=== PATIENT | female | born 1980 | race Two or more races ===

== ENCOUNTER 2024-10-25 10:34 | Outpatient (CLI) | payer OTHER, SELFPAY ==
[2024-10-25 11:41] LABS: Anion Gap 6 mmol/L (4-12); Blood Urea Nitrogen 10 mg/dL (7-17); Calcium 8.7 mg/dL (8.4-10.2); Carbon Dioxide 26 mmol/L (22-30); Chloride 104 mmol/L (98-107); Estimated Glomerular Filt Rate > 60; Glucose 77 mg/dL (65-110); Potassium 4.3 mmol/L (3.4-5.0); Sodium 136 mmol/L (137-145)
== END 2024-10-25 10:35 | disposition home or self-care (01) ==
LOC: ANHSURGERY 10:40
PROVIDERS: Anesthesiology; PCP Family Medicine; Visit Provider Obstetrics & Gynecology
DX: Z51.81 Encounter for therapeutic drug level monitoring (principal); Z79.899 Other long term (current) drug therapy
CPT/HCPCS: 36415; 80048

== ENCOUNTER 2024-11-04 00:58 | Day surgery (SDC) | payer OTHER, SELFPAY ==
[2024-10-24 09:22] VITALS: BMI 28.3
--- NOTE | 2024-10-24 09:32 | PC.NURSE ---
Report to the Outpatient Waiting Room, entrance under the green pavilion located off [facility], at time _0930_ on date _[id number]_. Planned Procedure Time: _1130_.? Time changes happen often and if your time is changed the preop area will call you the afternoon before. - You and your visitor will be asked to self-screen and do not enter if you have any COVID symptoms. Please call surgeon if you need to reschedule. - A mask is optional within the hospital at this time. Patients may have clear liquids (water, carbonated beverages, clear teas, apple juice) until 3 hours prior to surgery with a maximum of 20 ounces. - No food from midnight until time of surgery and no smoking, or chewing tobacco (or any form of nicotine). No chewing gum, candy or mints. Take only the following medications with a SIP of water on the morning of surgery: ___None____ DO NOT STOP ANY OF YOUR OTHER PRESCRIPTION MEDICATIONS PRIOR TO SURGERY EXCEPT THE FOLLOWING Hold all vitamins and supplements for 3 days per anesthesiologist. Medications to discontinue per physician Date to take last [id number]__[phone]___ Please no make-up, nail beninese, hairspray, perfume, deodorant, or body powder the day of surgery.? No jewelry (including any body piercings) or valuables the day of surgery, leave them at home.? Please take a shower or bath the night before, or the morning of, surgery with an antibacterial soap.? Wear comfortable, loose fitting clothing.? - Jewelry must be removed prior to entering the operating room.? Rings and piercings that are not removed may be cut off. - The hospital will not accept responsibility for valuables.? - Please leave all valuables, including medications, at home the day of surgery. If you are going home after surgery, a licensed over the road driver must drive you home.? - NO public transportation without another adult if you receive anesthesia. - We recommend that an adult stay with you for 24 hours following discharge. - We also recommend that you do not drive, make important decision, drink alcoholic beverages, or take any drugs that were not prescribed by your health care provider for at least 24 hours after your discharge time. Follow any additional instructions given to you from your surgeon. Telephone instructions given to __Amira___and asked if any additional questions and then verbalized understanding. Patient advised to call surgeon office or pre surgery nurse liaison [phone] if any additional questions.
--- NOTE | 2024-11-04 07:33 | PM.IMHP ---
H&P: HPI History of Present Illness Date/Time: 11/04/24 07:33 Chief Complaint: abnormal uterine bleeding Narrative: Patient is a 44 year old female who presents for hysteroscopy and polypectomy indicated for abnormal uterine bleeding. She has had worsening periods over the past 1-2 years. Ultrasound demonstrates 2-3cm endometrial polyp, likely source of heavy bleeding. Denies abdominal pain, fevers, chills, or dysuria. Review of Systems Review of Systems: All systems reviewed & are unremarkable except as noted in HPI and below PMFSH Social History Social History Smoking status: Never smoker Living arrangements: with family Spiritual care concerns: No Meds Home Medications and Allergies Home Medications ?Medication ?Instructions ?Recorded ?Confirmed ?Type cholecalciferol (vitamin D3) 50 50 mcg PO DAILY 10/24/24 10/24/24 History mcg (2,000 unit) capsule losartan 100 1 tablet PO DAILY 10/24/24 10/24/24 History mg-hydrochlorothiazide 12.5 mg tablet semaglutide (weight loss) 2.4 2.4 mg subcut WEEKLY 10/24/24 10/24/24 History mg/0.75 mL subcutaneous pen injector (Wegovy) Allergies Allergy/AdvReac Type Severity Reaction Status Date / Time No Known Allergies Allergy Unverified 10/24/24 09:19 Exam Const: General: comfortable and no acute distress Resp: Effort & Inspection: normal respiratory effort Cardio: Rate: regular rate Skin: General skin exam: normal color Extrem: General: normal to inspection Psych: Mental Status: mental status grossly normal Assessment and Plan Assessment and plan (1) Abnormal uterine bleeding due to endometrial polyp: Code(s): N93.9 - Abnormal uterine and vaginal bleeding, unspecified; N84.0 - Polyp of corpus uteri Status: Acute Assessment and Plan: - worsening periods over the past 1-2 years - pelvic US demonstrates 2-3cm endometrial polyp - recommend hysteroscopy with polypectomy and D&C to remove polyp and other endometrial etiologies of AUB - risks and benefits discussed with patient - will proceed with hysteroscopy with polypectomy and D&C
[2024-11-04 11:05] VITALS: BP 125/68; PULSE 73; RESP 16; TEMP 37.3; O2SAT 99
[2024-11-04] MEDS: ACETAMINOPHEN 500 MG TABLET 1000 MG PO (11:20)
[2024-11-04] MEDS: LACTATED RINGERS 1,000 ML 30 ML IV CONT ×2 (11:25)
--- NOTE | 2024-11-04 11:43 | WPDHPUPDATE1 ---
History and Physical Update Update Date/Time: 11/04/24 11:43 History and Physical has been reviewed, including an updated exam of the patient. There are NO changes in the patient's condition. Risks, benefits, and alternatives have been discussed and questions answered. Patient agrees to proceed with procedure.
[2024-11-04 11:47] LABS: BEDSIDEPREGUCG Negative (Negative)
--- NOTE | 2024-11-04 11:47 | WPDANESEPPF ---
Anes - Initial Pre Proc Eval Procedure: Operation Date: 11/04/24 12:30 Proposed Procedures p Hysteroscopy with Biopsy of Endometrium and/or Polypectomy - Casper Arthur MD Date/Time: 11/04/24 11:47 Surgeon: Casper Arthur MD Pre Op Diagnosis: Abnormal Uterine Bleeding Patient Data Age: 44 Gender: F Height: 1.6 m Weight: 72.2 kg Last Vital Signs Temp 37.3 C 11/04/24 11:05 Pulse 73 11/04/24 11:05 Resp 16 11/04/24 11:05 BP 125/68 11/04/24 11:05 Pulse Ox 99 11/04/24 11:05 O2 Del Method Room Air 11/04/24 11:05 Allergies Allergy/AdvReac Type Severity Reaction Status Date / Time No Known Allergies Allergy Unverified 11/04/24 11:17 Home Medications ?Medication ?Instructions ?Recorded ?Confirmed ?Type cholecalciferol (vitamin D3) 50 50 mcg PO DAILY 10/24/24 10/24/24 History mcg (2,000 unit) capsule losartan 100 1 tablet PO DAILY 10/24/24 10/24/24 History mg-hydrochlorothiazide 12.5 mg tablet semaglutide (weight loss) 2.4 2.4 mg subcut WEEKLY 10/24/24 11/04/24 History mg/0.75 mL subcutaneous pen injector (Wegovy) Laboratory Tests 11/04/24 11:45 POC Urine HCG, Qual Negative (Negative) Patient hx anesthesia problems: none Family hx anesthesia problems: none Results Review: All pre-operative results and documents have been reviewed as part of the pre-operative evaluation. [facility] Social History Social History Smoking status: Never smoker Living arrangements: with family Spiritual care concerns: No Anes - Eval Final PreProcedure Day of Procedure 11/04/24 11:47 Patient weight: overweight Heart: regular rate and rhythm Lungs: clear to auscultation Airway: Mallampati scale class II Neurological: alert and oriented Last oral intake: >/= 8 hours ASA classification: II Emergent: no Anesthetic plan: proceed Anesthesia type and monitoring: general GIVS and standard monitoring Results Review: All pre-operative results and documents have been reviewed as part of the pre-operative evaluation. Informed Consent: The patient's anesthetic plan and its attendant risks and benefits were discussed with the patient/family/POA. Questions were solicited and answers provided to the satisfaction of the patient/family/POA.
[2024-11-04] MEDS: LIDO 1%/EPINEPHRINE 1:100,000 20 ML VIAL 10 ML INFILTRATE (12:05)
--- NOTE | 2024-11-04 12:16 | S_PTH ---
PATIENT: Mariel Lemon LOC: [facility] U#:[id number] AGE/SX: 44/F ROOM: RE11/04/[address]: Casper Arthur MD : 1980 BED: DIS: 11/04/2024 SPEC #: [id number] RECD: 11/04/24 13:23 STATUS: SUDHAKAR REKevin #: [id number] JASWINDER: 11/04/24 12:[address]: Casper Arthur DEPT: [facility] Surgical RECD BY: Dalila Hawk ENTERED: 11/04/24 13:23 SP TYPE: Surgical OTHR DR: Neymar BarronMD Tissues: A - Polyp Procedures: Hematoxylin and Eosin Stain Gross and Microscopic Level 4
[2024-11-04 12:25] VITALS: BP 100/48; PULSE 70; RESP 16; O2SAT 100
--- NOTE | 2024-11-04 12:26 | W.PM.PROC2 ---
Procedure Note - Detailed Date of Procedure 11/04/24 Pre-op Diagnosis Abnormal Uterine Bleeding Post-op Diagnosis Same Procedure Performed hysteroscopy, polypectomy Surgeon Casper Arthur MD Anesthesia MAC Findings one large and two small endometrial polyps, one endocervical polyp visualized Description of Procedure The patient was taken to the operating room with IVFs running. She was placed into the dorsal supine position where she received MAC without any difficulty. The patient was placed in the dorsal lithotomy position using Brian stirrups. EUA revealed findings as above. She was then prepped and draped in a normal sterile fashion. A time-out procedure was performed and all members of the OR team agreed on the patient and plan. A bivalve speculum was then inserted into the patient's vagina. The anterior lip of the cervix was grasped with a single tooth tenaculum. The hysteroscope was then inserted into the uterine cavity using saline as the distension media and revealed the above findings. Both ostia were identified and pictures were taken. At this point, the morcellator was then introduced into the hysteroscope and calibrated. The tip of the morcellator was then applied to the polyps and activated. The polyps were removed to their bases. At the end of the procedure, the uterine cavity was clear of all pathology. The fluid deficit was 280 cc. A sharp curettage was performed. The specimen was sent for pathology. The hysteroscope and tenaculum were removed. The anterior lip of the cervix was hemostatic. The speculum was then removed. The patient tolerated the procedure well. Sponge, lap, and instrument counts were correct X2. The patient was taken out of the dorsal lithotomy position and was awakened from anesthesia. She was taken to the recovery room in stable condition. Estimated Blood Loss 10 Pathology Yes Complications No immediate complications Condition Stable Disposition Same day
[2024-11-04 12:55] VITALS: BP 99/59; PULSE 80; RESP 16; O2SAT 99
[2024-11-04 13:15] VITALS: BP 105/54; PULSE 59; RESP 16
[2024-11-04] MEDS: oxyCODONE HCL (*CRX) 5 MG TAB IR PO (13:17)
== END 2024-11-04 13:35 | disposition home or self-care (01) ==
PROVIDERS: PCP Family Medicine; Visit Provider Obstetrics & Gynecology
PROC: 0U5B8ZZ Destruction of Endometrium, Via Natural or Artificial Opening Endoscopic (ICD-10-PCS; CPT 58563; principal; 2024-11-04 12:30)
DX: N84.0 Polyp of corpus uteri (principal); Z79.899 Other long term (current) drug therapy; Z79.85 Long-term (current) use of injectable non-insulin antidiabetic drugs
CPT/HCPCS: 58558; 88305; A9270; J2004; J2250; J2704; J7120